=== PATIENT | male | born 1975 | race Caucasian/White ===

== ENCOUNTER 2018-03-03 17:59 | Emergency (ER) | payer BC ==
[2018-03-03 18:27] VITALS: BP 118/67
--- NOTE | 2018-03-03 18:39 | UC ---
General HPI - HPI Summary HPI Summary: PT STATES MOUTH HAS BEEN DRY FOR TO DAYS. TODAY, HE NOTED SOME SWELLING IN R CHEEK. NO DENTAL OR GUM PAIN AND JUST SAW DENTIST FOR ROUTINE VISIT LAST WEEK. NO FEVER. - History of Current Complaint Stated Complaint: DENTAL COMPLAINT Time Seen by Provider: 03/03/18 18:25 Hx Obtained From: Patient - Allergy/Home Medications Allergies/Adverse Reactions: Allergies Allergy/AdvReac Type Severity Reaction Status Date / Time No Known Allergies Allergy Verified 03/03/18 18:27 Home Medications: Home Medications Citalopram TAB* [CeleXA TAB*] 20 mg PO DAILY 03/03/18 [History Confirmed ] Elviteg/Cob/Emtri/Tenof Alafen [Genvoya Tablet] 1 each PO DAILY 03/03/18 [ History Confirmed 03/03/18] Multivitamin [Multivitamins] 1 each PO DAILY 03/03/18 [History Confirmed ] ValACYclovir (*) [Valtrex 500 mg (*)] 500 mg PO DAILY 03/03/18 [History Confirmed 03/03/18] Varenicline (NF) [Chantix 1 MG TAB (NF)] 1 mg PO BID 03/03/18 [History Confirmed 03/03/18] PMH/Surg Hx/FS Hx/Imm Hx Other History Of: HIV - CD4=1,400 - Family History Known Family History: Positive: Non-Contributory - Social History Occupation: Employed Full-time - Immunization History Vaccination Up to Date: Yes Review of Systems All Other Systems Reviewed And Are Negative: Yes Constitutional: Positive: Negative Skin: Positive: Negative Eyes: Positive: Negative ENT: Positive: Negative Respiratory: Positive: Negative Cardiovascular: Positive: Negative Gastrointestinal: Positive: Negative Genitourinary: Positive: Negative Motor: Positive: Negative Neurovascular: Positive: Negative Musculoskeletal: Positive: Negative Neurological: Positive: Negative Psychological: Positive: Negative Physical Exam Triage Information Reviewed: Yes Appearance: Well-Appearing Vital Signs Reviewed: Yes Eyes: Positive: Conjunctiva Clear ENT: Positive: Pharynx normal, TMs normal, Other - MILD SWELLING R PAROTID GLAND THAT IS CREASED WITH A SOUR CANDY. NO AURICULAR ADENOPATHY.. Negative: Nasal congestion, Nasal drainage Dental: Negative: Percussion Tenderness @, Gross Decay/Caries @, Dental Fracture @, Abscess @ Neck: Positive: Supple, Nontender, No Lymphadenopathy Respiratory: Positive: Lungs clear Cardiovascular: Positive: RRR, No Murmur Abdomen Description: Positive: Nontender, No Organomegaly, Soft Bowel Sounds: Positive: Present Musculoskeletal: Positive: ROM Intact Neurological: Positive: Alert Psychological: Positive: Age Appropriate Behavior Skin Exam: Normal Skin: Negative: Rashes Course/Dx - Differential Dx - Multi-Symptom Provider Diagnoses: Parotitis on R Discharge - Sign-Out/Discharge Documenting (check all that apply): Patient Departure All imaging exams completed and their final reports reviewed: No Studies - Discharge Plan Condition: Stable Disposition: HOME Prescriptions: Amoxicillin/Clavulanate TAB* [Augmentin TAB 875*] 875 mg PO BID 10 Days #20 tab Patient Education Materials: Sialoadenitis (ED) Referrals: No Primary Care Phys,NOPCP [Primary Care Provider] - Additional Instructions: FOLLOW UP WITH YOUR PRIMARY CARE AT [facility] INFECTIOUS DISE[facility] IN 2 DAYS. GO TO [facility] ER FOR ANY WORSENING PRIOR TO THAT. - Billing Disposition and Condition Condition: STABLE Disposition: Home
== END 2018-03-03 18:51 | disposition home or self-care (01) ==
LOC: UCCORT 17:59
DX: K11.20 Sialoadenitis, unspecified (principal); B20 Human immunodeficiency virus [HIV] disease
CPT/HCPCS: 99202; G0463